=== PATIENT | male | born 1965 | race Hispanic/Latino ===

== ENCOUNTER 2019-11-28 07:43 | Observation (INO) | payer OTHER ==
[2019-11-28] MEDS ORDERED: ASPIRIN 325 MG TAB PO ONE (07:50)
[2019-11-28 08:23] LABS: Basophils % (Auto) 0.5 % (0.0-1.8); Eosinophils # (Auto) 0.1 K/mm3 (0.0-0.4); Eosinophils % (Auto) 2.1 % (0.0-4.3); Hematocrit 49.8 % (35.5-45.6); Lymphocytes # (Auto) 1.1 K/mm3 (1.2-5.4); Lymphocytes % (Auto) 16.2 % (13.4-35.0); Mean Corpuscular HGB Conc 34 % (32-34); Mean Corpuscular Volume 87 fl (84-94); Monocytes # (Auto) 0.3 K/mm3 (0.0-0.8); Monocytes % (Auto) 4.7 % (0.0-7.3); Platelet Count 201 K/mm3 (140-440); Red Blood Count 5.73 M/mm3 (3.65-5.03); Red Cell Distribution Width 14.2 % (13.2-15.2)
--- NOTE | 2019-11-28 08:25 | XRay Report ---
CHEST 2 VIEWS INDICATION: Chest Pain. COMPARISON: None FINDINGS: SUPPORT DEVICES: None. HEART: Within normal limits. LUNGS/PLEURA: Minimal streaky left basilar airspace disease with otherwise clear lungs. No pneumotho rax. ADDITIONAL FINDINGS: None. IMPRESSION: 1. Pulmonary findings as above. Signer Name: Antonio Pandey MD Signed: 11/28/2019 8:21 AM Workstation Name: [id number]
--- NOTE | 2019-11-28 08:35 | Emergency Department Report ---
ED Chest Pain HPI - General Chief Complaint: Chest Pain Stated Complaint: CHEST PAIN Time Seen by Provider: 11/28/19 08:24 Source: patient Mode of arrival: Ambulatory Limitations: No Limitations - History of Present Illness Initial Comments: This is a 54-year-old male with no prior emergency department visit for chest pain. He has a history of diabetes and hypertension. He is a former smoker. His mother had a heart attack and heart valve disease. He states he had a stress test "a long time ago". Today he started to experience sweating at home. He checked his sugar and it was about 100. He decided to continue on a trip from [place] to [facility]. However, in route he developed "tingling in his chest" that lasted for about a minute. He felt short of breath. The discomfort did not radiate. He was somewhat sweaty again. He has not experienced something like this in the past. His symptoms have now resolved. MD Complaint: chest pain -: Gradual, minutes(s) Onset: during rest Pain Location: substernal Pain Radiation: none Severity: moderate Quality: other (As above) Consistency: now resolved re: diaphoresis, dyspnea Other Symptoms: denies: cough, fever, syncope Treatments Prior to Arrival: none Aspirin use within the Past 7 Days: (0) No - Related Data Home Medications Medication Instructions Recorded Confirmed Last Taken Dapagliflozin Propanediol [Farxiga] 10 mg PO QDAY 11/28/19 11/28/19 11/27/19 Pantoprazole [Protonix] 40 mg PO QDAY 11/28/19 11/28/19 11/27/19 Pregabalin [Lyrica] 75 mg PO QDAY 11/28/19 11/28/19 11/27/19 lisinopriL [Zestril] 20 mg PO QDAY 11/28/19 11/28/19 11/27/19 Allergies Allergy/AdvReac Type Severity Reaction Status Date / Time Penicillins Allergy Unknown Verified 11/28/19 07:44 Heart Score - HEART Score History: Moderately suspicious EKG: Normal Age: 45-65 Risk factors: > 3 risk factors or hx of atherosclerotic disease Troponin: < normal limit HEART Score: 4 - Critical Actions Critical Actions: 4-6 pts:12-16.6% risk of adverse cardiac event. Should be admitted ED Review of Systems ROS: Stated complaint: CHEST PAIN Other details as noted in HPI Constitutional: diaphoresis ("[place] clammy"). denies: chills, fever Eyes: denies: eye pain, eye discharge, vision change ENT: denies: ear pain, throat pain Respiratory: shortness of breath. denies: cough, wheezing Cardiovascular: chest pain. denies: palpitations Endocrine: no symptoms reported Gastrointestinal: denies: abdominal pain, nausea, diarrhea Genitourinary: denies: urgency, dysuria Musculoskeletal: denies: back pain, joint swelling, arthralgia Skin: denies: rash, lesions Neurological: denies: headache, weakness, paresthesias Psychiatric: denies: anxiety, depression Hematological/Lymphatic: denies: easy bleeding, easy bruising ED Past Medical Hx - Past Medical History Previous Medical History?: Yes Hx Hypertension: Yes Hx Diabetes: Yes - Surgical History Past Surgical History?: No - Social History Smoking Status: Never Smoker Substance Use Type: None - Medications Home Medications: Home Medications Medication Instructions Recorded Confirmed Last Taken Type Dapagliflozin Propanediol [Farxiga] 10 mg PO QDAY 11/28/19 11/28/19 11/27/19 History Pantoprazole [Protonix] 40 mg PO QDAY 11/28/19 11/28/19 11/27/19 History Pregabalin [Lyrica] 75 mg PO QDAY 11/28/19 11/28/19 11/27/19 History lisinopriL [Zestril] 20 mg PO QDAY 11/28/19 11/28/19 11/27/19 History ED Physical Exam - General Limitations: No Limitations General appearance: alert, in no apparent distress - Head Head exam: Present: atraumatic, normocephalic - Eye Eye exam: Present: normal appearance. Absent: scleral icterus - ENT ENT exam: Present: mucous membranes moist - Neck Neck exam: Present: normal inspection - Respiratory Respiratory exam: Present: normal lung sounds bilaterally. Absent: respiratory distress - Cardiovascular Cardiovascular Exam: Present: regular rate, normal rhythm. Absent: systolic murmur, diastolic murmur, rubs, gallop - GI/Abdominal GI/Abdominal exam: Present: soft, normal bowel sounds. Absent: distended, tenderness, guarding, rebound, rigid - Rectal Rectal exam: Present: deferred - Extremities Exam Extremities exam: Present: normal inspection. Absent: pedal edema, calf tenderness - Back Exam Back exam: Present: normal inspection - Neurological Exam Neurological exam: Present: alert, oriented X3, CN II-XII intact. Absent: motor sensory deficit - Psychiatric Psychiatric exam: Present: normal affect, normal mood - Skin Skin exam: Present: warm, dry, intact, normal color. Absent: rash ED Course Vital Signs 11/28/19 11/28/19 11/28/19 07:45 08:27 08:30 Temperature 97.5 F L Pulse Rate 92 H 80 79 Respiratory 16 14 19 Rate Blood Pressure 142/96 133/88 Blood Pressure [Right] O2 Sat by Pulse 97 97 96 Oximetry 11/28/19 11/28/19 08:31 09:21 Temperature Pulse Rate 72 73 Respiratory 15 15 Rate Blood Pressure Blood Pressure 133/88 120/88 [Right] O2 Sat by Pulse 97 96 Oximetry - Reevaluation(s) Reevaluation #1: Discussed with hospitalist. Admit to Dr. Alvarez. 11/28/19 09:27 IZZY score - Izzy Score Age > 65: (0) No Aspirin use within the Past 7 Days: (0) No 3 or more CAD Risk Factors: (1) Yes 2 or more Angina events in past 24 hrs: (0) No Known CAD with more than 50% Stenosis: (0) No Elevated Cardiac Markers: (0) No ST Deviation Greater than 0.5mm: (0) No IZZY Score: 1 ED Medical Decision Making - Lab Data Result diagrams: 11/28/19 07:52 11/28/19 07:52 Laboratory Results - last 24 hr 11/28/19 11/28/19 11/28/19 07:52 07:52 08:55 WBC 6.9 RBC 5.73 H Hgb 17.0 H Hct 49.8 H MCV 87 MCH 30 MCHC 34 RDW 14.2 Plt Count 201 Lymph % (Auto) 16.2 [place] % (Auto) 4.7 Eos % (Auto) 2.1 Baso % (Auto) 0.5 Lymph # 1.1 L [place] # 0.3 Eos # 0.1 Baso # 0.0 Seg Neutrophils % 76.5 H Seg Neutrophils # 5.3 PT 12.4 INR 0.94 APTT 28.4 Sodium 138 Potassium 4.4 Chloride 99.7 Carbon Dioxide 23 Anion Gap 20 BUN 20 Creatinine 0.8 Estimated GFR > 60 BUN/Creatinine Ratio 25 Glucose 151 H Calcium 9.3 Troponin T < 0.010 - EKG Data -: EKG Interpreted by Me EKG shows normal: sinus rhythm, axis, intervals, QRS complexes, ST-T waves Rate: normal - EKG Data Interpretation: no acute changes - Radiology Data Radiology results: image reviewed (Looks like some chronic lung and a nipple shadow) Critical care attestation.: If time is entered above; I have spent that time in minutes in the direct care of this critically ill patient, excluding procedure time. ED Disposition Clinical Impression: Chest pain Qualifiers: Chest pain type: unspecified Qualified Code(s): R07.9 - Chest pain, unspecified Type 2 diabetes mellitus Qualifiers: Diabetes mellitus senior care insulin use: unspecified senior care insulin use status Diabetes mellitus complication status: without complication Qualified Code(s): E11.9 - Type 2 diabetes mellitus without complications Disposition: 09 OP ADMIT IP TO THIS HOSP Is pt being admited?: Yes Does the pt Need Aspirin: Yes Condition: Stable Instructions: Chest Pain (ED), Diabetes Mellitus Type 2 in Adults (ED) Time of Disposition: 09:27
[2019-11-28 08:44] LABS: BUN/Creatinine Ratio 25; Blood Urea Nitrogen 20 mg/dL (9-20); Calcium 9.3 mg/dL (8.4-10.2); Hemolysis Index 26
[2019-11-28 09:19] LABS: INR 0.94 (0.87-1.13)
[2019-11-28 09:20] LABS: Partial Thromboplastin Time 28.4 Sec. (24.2-36.6)
[2019-11-28 09:27] LABS: Creatine Kinase MB 2.1 ng/mL (0.0-4.0)
[2019-11-28 09:28] LABS: Alanine Aminotransferase 23 units/L (7-56); Albumin 4.2 g/dL (3.9-5)
[2019-11-28 09:40] LABS: Bilirubin,Direct < 0.2 mg/dL (0-0.2)
--- NOTE | 2019-11-28 11:19 | History and Physical Report ---
History of Present Illness Date of examination: 11/28/19 Date of admission: 11/28/19 09:28 Chief complaint: cp History of present illness: 54-year-old male with significant past medical history of diabetes mellitus type 2, hypertension and former smoker who presents to the emergency department with complaints of chest pain. Patient reports that his last cardiac evaluation via stress test was 2014 and reportedly normal. He reports that today he became diaphoretic while driving to visit his mother in [facility]. Patient stated that other symptoms ensued including tingling in his chest and mild shortness of breath. He also reports that his diaphoresis worsened. Therefore, patient came to the nearest hospital which was our facility this morning. He denies any nausea or vomiting. No cough or cold-like symptoms. No fever chills. Past History Past Medical History: diabetes, hypertension Past Surgical History: No surgical history Social history: no significant social history Family history: other (Mother with CAD/VA and heart valve disease) Medications and Allergies Allergies Allergy/AdvReac Type Severity Reaction Status Date / Time Penicillins Allergy Unknown Verified 11/28/19 07:44 Home Medications Medication Instructions Recorded Confirmed Last Taken Type Dapagliflozin Propanediol [Farxiga] 10 mg PO QDAY 11/28/19 11/28/19 11/27/19 History Pantoprazole [Protonix] 40 mg PO QDAY 11/28/19 11/28/19 11/27/19 History Pregabalin [Lyrica] 75 mg PO QDAY 11/28/19 11/28/19 11/27/19 History lisinopriL [Zestril] 20 mg PO QDAY 11/28/19 11/28/19 11/27/19 History Review of Systems All systems: negative Exam - Constitutional Vitals: Temp Pulse Resp BP Pulse Ox 97.5 F L 63 12 116/78 96 11/28/19 07:45 11/28/19 10:00 11/28/19 10:00 11/28/19 10:00 11/28/19 10:00 General appearance: Present: no acute distress, well-nourished - EENT Eyes: Present: PERRL ENT: hearing intact, clear oral mucosa - Neck Neck: Present: supple, normal ROM - Respiratory Respiratory effort: normal Respiratory: bilateral: CTA - Cardiovascular Heart Sounds: Present: S1 & S2. Absent: rub, click - Extremities Extremities: pulses symmetrical, No edema Peripheral Pulses: within normal limits - Abdominal General gastrointestinal: Present: soft, non-tender, non-distended, normal bowel sounds Male genitourinary: Present: normal - Integumentary Integumentary: Present: clear, warm, dry - Musculoskeletal Musculoskeletal: gait normal, strength equal bilaterally - Psychiatric Psychiatric: appropriate mood/affect, intact judgment & insight - Neurologic Neurologic: CNII-XII intact, moves all extremities HEART Score - HEART Score EKG: Normal Age: 45-65 Risk factors: > 3 risk factors or hx of atherosclerotic disease Troponin: Troponin T < 0.010 ng/mL (0.00-0.029) 11/28/19 08:55 Troponin: < normal limit - Critical Actions Critical Actions: 4-6 pts:12-16.6% risk of adverse cardiac event. Should be admitted Results - Labs CBC & Chem 7: 11/28/19 07:52 11/28/19 07:52 Labs: Laboratory Last Values WBC 6.9 K/mm3 (4.5-11.0) 11/28/19 07:52 RBC 5.73 M/mm3 (3.65-5.03) H 11/28/19 07:52 Hgb 17.0 gm/dl (11.8-15.2) H 11/28/19 07:52 Hct 49.8 % (35.5-45.6) H 11/28/19 07:52 MCV 87 fl (84-94) 11/28/19 07:52 MCH 30 pg (28-32) 11/28/19 07:52 MCHC 34 % (32-34) 11/28/19 07:52 RDW 14.2 % (13.2-15.2) 11/28/19 07:52 Plt Count 201 K/mm3 (140-440) 11/28/19 07:52 Lymph % (Auto) 16.2 % (13.4-35.0) 11/28/19 07:52 [place] % (Auto) 4.7 % (0.0-7.3) 11/28/19 07:52 Eos % (Auto) 2.1 % (0.0-4.3) 11/28/19 07:52 Baso % (Auto) 0.5 % (0.0-1.8) 11/28/19 07:52 Lymph # 1.1 K/mm3 (1.2-5.4) L 11/28/19 07:52 [place] # 0.3 K/mm3 (0.0-0.8) 11/28/19 07:52 Eos # 0.1 K/mm3 (0.0-0.4) 11/28/19 07:52 Baso # 0.0 K/mm3 (0.0-0.1) 11/28/19 07:52 Seg Neutrophils % 76.5 % (40.0-70.0) H 11/28/19 07:52 Seg Neutrophils # 5.3 K/mm3 (1.8-7.7) 11/28/19 07:52 PT 12.4 Sec. (12.2-14.9) 11/28/19 08:55 INR 0.94 (0.87-1.13) 11/28/19 08:55 APTT 28.4 Sec. (24.2-36.6) 11/28/19 08:55 Sodium 138 mmol/L (137-145) 11/28/19 07:52 Potassium 4.4 mmol/L (3.6-5.0) 11/28/19 07:52 Chloride 99.7 mmol/L (98-107) 11/28/19 07:52 Carbon Dioxide 23 mmol/L (22-30) 11/28/19 07:52 Anion Gap 20 mmol/L 11/28/19 07:52 BUN 20 mg/dL (9-20) 11/28/19 07:52 Creatinine 0.8 mg/dL (0.8-1.5) 11/28/19 07:52 Estimated GFR > 60 ml/min 11/28/19 07:52 BUN/Creatinine Ratio 25 % 11/28/19 07:52 Glucose 151 mg/dL (75-100) H 11/28/19 07:52 Calcium 9.3 mg/dL (8.4-10.2) 11/28/19 07:52 Total Bilirubin 0.50 mg/dL (0.1-1.2) 11/28/19 08:55 Direct Bilirubin < 0.2 mg/dL (0-0.2) 11/28/19 08:55 Indirect Bilirubin 0.3 mg/dL 11/28/19 08:55 AST 19 units/L (5-40) 11/28/19 08:55 ALT 23 units/L (7-56) 11/28/19 08:55 Alkaline Phosphatase 68 units/L (35-129) 11/28/19 08:55 Total Creatine Kinase 70 units/L (55-170) 11/28/19 08:55 CK-MB (CK-2) 2.1 ng/mL (0.0-4.0) 11/28/19 08:55 CK-MB (CK-2) Rel Index 3.0 (0-4) 11/28/19 08:55 Troponin T < 0.010 ng/mL (0.00-0.029) 11/28/19 08:55 NT-Pro-B Natriuret Pep 96.00 pg/mL (0-900) 11/28/19 08:55 Total Protein 6.9 g/dL (6.3-8.2) 11/28/19 08:55 Albumin 4.2 g/dL (3.9-5) 11/28/19 08:55 Albumin/Globulin Ratio 1.6 % 11/28/19 08:55 [place]/IV: IV Catheter Type [Left INT / Saline Lock Antecubital] Assessment and Plan Assessment and plan: Chest pain. Patient will be placed on the chest pain pathway. Follow-up cardiac isoenzymes and EKG. Cardiology consultation. Check echocardiogram.\ Diabetes mellitus type 2. Continue Accu-Cheks and sliding scale insulin. Hypertension. Resume lisinopril.
[2019-11-28] MEDS ORDERED: DEXTROSE 50% IN WATER (25GM) 50 ML SYRINGE IV PRN (11:24)
[2019-11-28] MEDS ORDERED: ACETAMINOPHEN 325 MG TAB PO PRN (11:24)
[2019-11-28] MEDS ORDERED: ONDANSETRON 4 MG/2 ML INJ IV PRN (11:24)
[2019-11-28] MEDS: INSULIN REGULAR, HUMAN 100 UNITS/1 ML SUB-Q SCH ×3 (12:49→21:08)
[2019-11-28] MEDS: ENOXAPARIN 40 MG/0.4 ML INJ SUB-Q SCH (13:11)
[2019-11-28 14:29] LABS: Basophils % (Auto) 0.7 % (0.0-1.8); Eosinophils # (Auto) 0.1 K/mm3 (0.0-0.4); Eosinophils % (Auto) 1.4 % (0.0-4.3); Hematocrit 48.4 % (35.5-45.6); Hemoglobin 16.3 gm/dl (11.8-15.2); Lymphocytes # (Auto) 1.3 K/mm3 (1.2-5.4); Lymphocytes % (Auto) 17.9 % (13.4-35.0); Mean Corpuscular HGB Conc 34 % (32-34); Mean Corpuscular Volume 88 fl (84-94); Monocytes # (Auto) 0.5 K/mm3 (0.0-0.8); Monocytes % (Auto) 6.9 % (0.0-7.3); Platelet Count 191 K/mm3 (140-440); Red Blood Count 5.51 M/mm3 (3.65-5.03); Red Cell Distribution Width 14.4 % (13.2-15.2)
[2019-11-28 15:00] LABS: BUN/Creatinine Ratio 21; Blood Urea Nitrogen 17 mg/dL (9-20); Calcium 9.1 mg/dL (8.4-10.2); Hemolysis Index 17
--- NOTE | 2019-11-28 16:23 | Consultation ---
History of Present Illness Consult date: 11/28/19 Requesting physician: JOLLY JEFF Consult reason: chest pain History of present illness: Pt is a 54 y.o. male with a past medical hx of HTN, HLD (newly diagnosed), DM2, and h/o tobacco abuse (former smoker). He is new to our practice. Pt reports having an echo and stress test done in [place] in 2014. He states all cardiac testing at that time was normal. Pt presented c/o chest pain that developed while he was driving earlier today. He states he began to feel "clammy" followed by what he describes as pressure in the center of his chest, non-radiating. The episode lasted 1-2 minutes and was associated w/SOB and tingling in his fingers, which also resolved. Pt denies any other cardiac complaints. He has been chest pain-free since admission. Trop neg x 3. No acute ischemic changes on ECG. CXR revealed minimal streaky left basilar airspace disease with otherwise clear lungs. Past History Past Medical History: diabetes, hypertension, hyperlipidemia Past Surgical History: No surgical history Social history: smoking (former smoker) Family history: CAD, other ([place] - mother) Medications and Allergies Allergies Allergy/AdvReac Type Severity Reaction Status Date / Time Penicillins Allergy Unknown Verified 11/28/19 07:44 Home Medications Medication Instructions Recorded Confirmed Last Taken Type Dapagliflozin Propanediol [Farxiga] 10 mg PO QDAY 11/28/19 11/28/19 11/27/19 History Pantoprazole [Protonix] 40 mg PO QDAY 11/28/19 11/28/19 11/27/19 History Pregabalin [Lyrica] 75 mg PO QDAY 11/28/19 11/28/19 11/27/19 History lisinopriL [Zestril] 20 mg PO QDAY 11/28/19 11/28/19 11/27/19 History Active Meds: Active Medications Acetaminophen (Tylenol) 650 mg PO Q4H PRN PRN Reason: Pain MILD(1-3)/Fever >100.5/BARNETT Aspirin (Ecotrin) 325 mg PO QDAY HADLEY Dextrose (D50w (25gm) Syringe) 50 ml IV Q30MIN PRN; Protocol PRN Reason: Hypoglycemia Enoxaparin Sodium (Enoxaparin) 40 mg SUB-Q QDAY HADLEY Last Admin: 11/28/19 13:11 Dose: 40 mg Documented by: Insulin Human Regular (Humulin R) 0 units SUB-Q ACHS [facility]; Protocol Last Admin: 11/28/19 12:49 Dose: Not Given Documented by: Ondansetron HCl (Zofran) 4 mg IV Q8H PRN PRN Reason: Nausea And Vomiting Sodium Chloride (Sodium Chloride Flush Syringe 10 Ml) 10 ml IV BID HADLEY Sodium Chloride (Sodium Chloride Flush Syringe 10 Ml) 10 ml IV PRN PRN PRN Reason: LINE FLUSH Sodium Chloride (Sodium Chloride Flush Syringe 10 Ml) 10 ml IV PRN PRN PRN Reason: LINE FLUSH Review of Systems Constitutional: no weight loss, no weight gain, no fever, no chills, no sweats, no fatigue Ears, nose, mouth and throat: no nasal congestion, no epistaxis, no bleeding gums, no dysphagia, no sore throat Cardiovascular: no chest pain, no orthopnea, no palpitations, no edema, no syncope, no lightheadedness, no shortness of breath, no dyspnea on exertion, no claudication Respiratory: no cough, no shortness of breath, no dyspnea on exertion, no wheezing, no pain on inspiration Gastrointestinal: no abdominal pain, no nausea, no vomiting, no diarrhea, no co nstipation Genitourinary Male: no dysuria, no flank pain Musculoskeletal: no neck stiffness, no neck pain, no muscle weakness, no muscle cramps Integumentary: no rash, no wounds Neurological: no head injury, no paralysis, no parathesias, no numbness, no tingling, no seizures, no syncope, no vertigo, no headaches Endocrine: no cold intolerance, no heat intolerance, no polydipsia, no polyuria Hematologic/Lymphatic: no easy bruising, no easy bleeding Allergic/Immunologic: no urticaria, no angioedema Physical Examination Last Vital Signs Temp 97.5 F L 11/28/19 07:45 Pulse 63 11/28/19 10:00 Resp 18 11/28/19 11:41 BP 116/78 11/28/19 10:00 Pulse Ox 98 11/28/19 11:41 General appearance: no acute distress HEENT: Positive: PERRL, Normocephaly, Mucus Membranes Moist Neck: Positive: neck supple, trachea midline. Negative: JVD/HJR Cardiac: Positive: Reg Rate and Rhythm, S1/S2 Lungs: Positive: clear to auscultation (bilaterally) Neuro: Positive: Grossly Intact Abdomen: Positive: Soft, Active Bowel Sounds. Negative: Tender Skin: Negative: Rash, Wound Musculoskeletal: No Pain, Normal Range of Motion Extremities: Present: upper extr. pulses, lower extr. pulses. Absent: edema Results 11/28/19 14:05 11/28/19 14:05 Cardiac Enzymes 11/28/19 11/28/19 Range/Units 08:55 08:55 AST 19 (5-40) units/L CK-MB (CK-2) 2.1 (0.0-4.0) ng/mL Coagulation 11/28/19 Range/Units 08:55 PT 12.4 (12.2-14.9) Sec. INR 0.94 (0.87-1.13) APTT 28.4 (24.2-36.6) Sec. CBC 11/28/19 11/28/19 Range/Units 07:52 14:05 WBC 6.9 7.4 (4.5-11.0) K/mm3 RBC 5.73 H 5.51 H (3.65-5.03) M/mm3 Hgb 17.0 H 16.3 H (11.8-15.2) gm/dl Hct 49.8 H 48.4 H (35.5-45.6) % Plt Count 201 191 (140-440) K/mm3 Lymph # 1.1 L 1.3 (1.2-5.4) K/mm3 [place] # 0.3 0.5 (0.0-0.8) K/mm3 Eos # 0.1 0.1 (0.0-0.4) K/mm3 Baso # 0.0 0.0 (0.0-0.1) K/mm3 Comprehensive Metabolic Panel 11/28/19 11/28/19 11/28/19 Range/Units 07:52 08:55 14:05 Sodium 138 138 (137-145) mmol/L Potassium 4.4 4.3 (3.6-5.0) mmol/L Chloride 99.7 100.8 (98-107) mmol/L Carbon Dioxide 23 24 (22-30) mmol/L BUN 20 17 (9-20) mg/dL Creatinine 0.8 0.8 (0.8-1.5) mg/dL Glucose 151 H 99 (75-100) mg/dL Calcium 9.3 9.1 (8.4-10.2) mg/dL Direct Bilirubin < 0.2 (0-0.2) mg/dL Indirect Bilirubin 0.3 mg/dL AST 19 (5-40) units/L ALT 23 (7-56) units/L Alkaline Phosphatase 68 (35-129) units/L Total Protein 6.9 (6.3-8.2) g/dL Albumin 4.2 (3.9-5) g/dL - Imaging and Cardiology Echo: pending EKG: report reviewed, image reviewed - EKG Interpretation EKG: no acute changes EKG interpretations - Telemetry EKG Rhythm: Sinus Rhythm - EKG Sinus rhythms and dysrhythmias: sinus rhythm Assessment and Plan ACS r/o. Obtain echo. Plan for Lexiscan MPI stress test on Saturday. Cont supportive care. Resume home Lisinopril. Pt was started on statin by PCP within the last few days. 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 Instructed pt to initiate statin therapy upon discharge. Pt seen in conjunction with Dr. Stack, who agrees with the assessment and plan of care. - Patient Problems (1) Chest pain Current Visit: Yes Status: Acute Qualifiers: Qualified Code(s): R07.9 - Chest pain, unspecified (2) Hypertension Current Visit: Yes Status: Chronic Qualifiers: Hypertension type: essential hypertension Qualified Code(s): I10 - Essential (primary) hypertension (3) Hyperlipidemia Current Visit: Yes Status: Chronic Qualifiers: Hyperlipidemia type: mixed hyperlipidemia Qualified Code(s): E78.2 - Mixed hyperlipidemia (4) Type 2 diabetes mellitus Current Visit: Yes Status: Chronic Qualifiers: Diabetes mellitus chcf insulin use: unspecified chcf insulin use status Diabetes mellitus complication status: without complication Qualified Code(s): E11.9 - Type 2 diabetes mellitus without complications
[2019-11-28] MEDS: LISINOPRIL 20 MG TAB PO SCH (21:41)
[2019-11-28] MEDS ORDERED: PANTOPRAZOLE 40 MG TAB PO SCH (23:00)
[2019-11-28] MEDS ORDERED: PREGABALIN 75 MG CAP PO SCH ×2 (23:45→23:59)
[2019-11-28] MEDS ORDERED: PANTOPRAZOLE 40 MG TAB PO ONE (23:54)
[2019-11-29 05:13] VITALS: BP 111/77
[2019-11-29 05:59] LABS: Basophils # (Auto) 0.1 K/mm3 (0.0-0.1); Basophils % (Auto) 0.8 % (0.0-1.8); Eosinophils # (Auto) 0.1 K/mm3 (0.0-0.4); Eosinophils % (Auto) 1.9 % (0.0-4.3); Hematocrit 48.1 % (35.5-45.6); Hemoglobin 16.3 gm/dl (11.8-15.2); Lymphocytes # (Auto) 1.3 K/mm3 (1.2-5.4); Lymphocytes % (Auto) 19.5 % (13.4-35.0); Mean Corpuscular HGB Conc 34 % (32-34); Mean Corpuscular Volume 88 fl (84-94); Monocytes # (Auto) 0.4 K/mm3 (0.0-0.8); Monocytes % (Auto) 6.4 % (0.0-7.3); Platelet Count 187 K/mm3 (140-440); Red Blood Count 5.49 M/mm3 (3.65-5.03); Red Cell Distribution Width 14.4 % (13.2-15.2)
[2019-11-29 06:03] LABS: BUN/Creatinine Ratio 23; Blood Urea Nitrogen 16 mg/dL (9-20); Hemolysis Index 10
[2019-11-29] MEDS: INSULIN REGULAR, HUMAN 100 UNITS/1 ML SUB-Q SCH ×2 (07:40→13:38)
[2019-11-29] MEDS ORDERED: ASPIRIN EC 325 MG TAB PO SCH (10:00)
[2019-11-29] MEDS ORDERED: PANTOPRAZOLE 40 MG TAB PO SCH ×2 (10:00→22:00)
[2019-11-29] MEDS ORDERED: PREGABALIN 75 MG CAP PO SCH (10:00)
[2019-11-29] MEDS ORDERED: LISINOPRIL 20 MG TAB PO SCH ×2 (10:00)
[2019-11-29] MEDS ORDERED: DAPAGLIFLOZIN PROPANEDIOL 10 MG PO SCH (10:00)
--- NOTE | 2019-11-29 10:29 | Progress Note ---
Assessment and Plan Assessment and plan: Chest pain. Patient will be placed on the chest pain pathway. Follow-up cardiac isoenzymes and EKG. Cardiology consultation. Check echocardiogram.\ Diabetes mellitus type 2. Continue Accu-Cheks and sliding scale insulin. Hypertension. Resume lisinopril. 11/29/2019. Patient is currently pain-free. Echocardiogram is pending. Cardiology is scheduled for stress test in a.m. History Interval history: Pt is a 54 y.o. male with a past medical hx of HTN, HLD (newly diagnosed), DM2, and h/o tobacco abuse (former smoker) who presented with c/o chest pain that developed while he was driving on 11/27/2019. Patient was admitted to the hospital with diagnosis of chest pain. Pt reports having an echo and stress test done in [place] in 2014. He states all cardiac testing at that time was normal. Trop neg x 3. No acute ischemic changes on ECG. CXR revealed minimal streaky left basilar airspace disease with otherwise clear lungs. Cardiology saw the patient in consultation and recommended echocardiogram and stress test. Hospitalist Physical - Constitutional Vitals: Temp Pulse Resp BP Pulse Ox 98.0 F 69 20 111/77 95 11/29/19 04:20 11/29/19 04:20 11/29/19 04:20 11/29/19 04:20 11/29/19 04:20 General appearance: Present: no acute distress - EENT Eyes: Present: PERRL, EOM intact ENT: hearing intact, clear oral mucosa, dentition normal - Neck Neck: Present: supple, normal ROM - Respiratory Respiratory effort: normal Respiratory: bilateral: CTA - Cardiovascular Rhythm: regular Heart Sounds: Present: S1 & S2. Absent: gallop, rub - Extremities Extremities: no ischemia, No edema, Full ROM - Abdominal General gastrointestinal: soft, non-tender, non-distended, normal bowel sounds - Integumentary Integumentary: Present: clear, warm, dry - Neurologic Neurologic: CNII-XII intact, moves all extremities HEART Score - HEART Score EKG: Normal Age: 45-65 Risk factors: > 3 risk factors or hx of atherosclerotic disease Troponin: Troponin T < 0.010 ng/mL (0.00-0.029) 11/28/19 14:05 Troponin: < normal limit - Critical Actions Critical Actions: 4-6 pts:12-16.6% risk of adverse cardiac event. Should be admitted Results - Labs CBC & Chem 7: 11/29/19 05:11 11/29/19 05:11 Labs: Laboratory Last Values WBC 6.9 K/mm3 (4.5-11.0) 11/29/19 05:11 RBC 5.49 M/mm3 (3.65-5.03) H 11/29/19 05:11 Hgb 16.3 gm/dl (11.8-15.2) H 11/29/19 05:11 Hct 48.1 % (35.5-45.6) H 11/29/19 05:11 MCV 88 fl (84-94) 11/29/19 05:11 MCH 30 pg (28-32) 11/29/19 05:11 MCHC 34 % (32-34) 11/29/19 05:11 RDW 14.4 % (13.2-15.2) 11/29/19 05:11 Plt Count 187 K/mm3 (140-440) 11/29/19 05:11 Lymph % (Auto) 19.5 % (13.4-35.0) 11/29/19 05:11 Gray % (Auto) 6.4 % (0.0-7.3) 11/29/19 05:11 Eos % (Auto) 1.9 % (0.0-4.3) 11/29/19 05:11 Baso % (Auto) 0.8 % (0.0-1.8) 11/29/19 05:11 Lymph # 1.3 K/mm3 (1.2-5.4) 11/29/19 05:11 Gray # 0.4 K/mm3 (0.0-0.8) 11/29/19 05:11 Eos # 0.1 K/mm3 (0.0-0.4) 11/29/19 05:11 Baso # 0.1 K/mm3 (0.0-0.1) 11/29/19 05:11 Seg Neutrophils % 71.4 % (40.0-70.0) H 11/29/19 05:11 Seg Neutrophils # 4.9 K/mm3 (1.8-7.7) 11/29/19 05:11 PT 12.4 Sec. (12.2-14.9) 11/28/19 08:55 INR 0.94 (0.87-1.13) 11/28/19 08:55 APTT 28.4 Sec. (24.2-36.6) 11/28/19 08:55 Sodium 138 mmol/L (137-145) 11/29/19 05:11 Potassium 4.0 mmol/L (3.6-5.0) 11/29/19 05:11 Chloride 100.9 mmol/L (98-107) 11/29/19 05:11 Carbon Dioxide 25 mmol/L (22-30) 11/29/19 05:11 Anion Gap 16 mmol/L 11/29/19 05:11 BUN 16 mg/dL (9-20) 11/29/19 05:11 Creatinine 0.7 mg/dL (0.8-1.5) L 11/29/19 05:11 Estimated GFR > 60 ml/min 11/29/19 05:11 BUN/Creatinine Ratio 23 % 11/29/19 05:11 Glucose 102 mg/dL (75-100) H 11/29/19 05:11 POC Glucose 77 (70-105) 11/28/19 20:59 Calcium 9.0 mg/dL (8.4-10.2) 11/29/19 05:11 Total Bilirubin 0.50 mg/dL (0.1-1.2) 11/28/19 08:55 Direct Bilirubin < 0.2 mg/dL (0-0.2) 11/28/19 08:55 Indirect Bilirubin 0.3 mg/dL 11/28/19 08:55 AST 19 units/L (5-40) 11/28/19 08:55 ALT 23 units/L (7-56) 11/28/19 08:55 Alkaline Phosphatase 68 units/L (35-129) 11/28/19 08:55 Total Creatine Kinase 70 units/L (55-170) 11/28/19 08:55 CK-MB (CK-2) 2.1 ng/mL (0.0-4.0) 11/28/19 08:55 CK-MB (CK-2) Rel Index 3.0 (0-4) 11/28/19 08:55 Troponin T < 0.010 ng/mL (0.00-0.029) 11/28/19 14:05 NT-Pro-B Natriuret Pep 96.00 pg/mL (0-900) 11/28/19 08:55 Total Protein 6.9 g/dL (6.3-8.2) 11/28/19 08:55 Albumin 4.2 g/dL (3.9-5) 11/28/19 08:55 Albumin/Globulin Ratio 1.6 % 11/28/19 08:55 Dawson/IV: Voiding Method Toilet IV Catheter Type [Left INT / Saline Lock Antecubital] Active Medications - Current Medications Current Medications: Generic Name Dose Route Start Last Admin Trade Name Freq PRN Reason Stop Dose Admin Acetaminophen 650 mg 11/28/19 11:24 Tylenol PO Q4H PRN Pain MILD(1-3)/Fever >100.5/BARNETT Aspirin 325 mg 11/29/19 10:00 Ecotrin PO QDAY [facility] Dextrose 50 ml 11/28/19 11:24 D50w (25gm) Syringe IV Q30MIN PRN Hypoglycemia Protocol Enoxaparin Sodium 40 mg 11/28/19 14:00 11/28/19 13:11 Enoxaparin SUB-Q 40 mg QDAY [facility] Administration Insulin Human Regular 0 units 11/28/19 11:30 11/29/19 07:40 Humulin R SUB-Q Not Given [facility] Protocol Lisinopril 20 mg 11/28/19 20:00 11/28/19 21:41 Zestril PO 20 mg QDAY [facility] Administration Miscellaneous Medication 10 mg 11/29/19 10:00 Dapagliflozin Propanediol [Farxiga] PO QDAY [facility] Ondansetron HCl 4 mg 11/28/19 11:24 Zofran IV Q8H PRN Nausea And Vomiting Pantoprazole Sodium 40 mg 11/29/19 22:00 Protonix PO QHS [facility] Pregabalin 75 mg 11/28/19 23:59 11/29/19 04:46 Pregabalin PO Not Given [facility]HS [facility] Sodium Chloride 10 ml 11/28/19 22:00 11/28/19 21:42 Sodium Chloride Flush Syringe 10 Ml IV 10 ml BID [facility] Administration Sodium Chloride 10 ml 11/28/19 11:24 Sodium Chloride Flush Syringe 10 Ml IV PRN PRN LINE FLUSH Sodium Chloride 10 ml 11/28/19 11:24 Sodium Chloride Flush Syringe 10 Ml IV PRN PRN LINE FLUSH
--- NOTE | 2019-11-29 10:54 | Progress Note ---
Assessment and Plan 54-year-old male with hypertension diabetes cholesterol has a heart score of 2 with atypical chest pain negative cardiac enzymes with normal ECG and echocardiogram normally function without significant rotation. We will add low- dose nitrates. 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 Patient may be discharged from a cardiovascular point of view advised patient if symptoms worsen to come back to emergency room refrain from physical activity - Patient Problems (1) Chest pain Current Visit: Yes Status: Acute Qualifiers: Qualified Code(s): R07.9 - Chest pain, unspecified (2) Hyperlipidemia Current Visit: Yes Status: Chronic Qualifiers: Hyperlipidemia type: mixed hyperlipidemia Qualified Code(s): E78.2 - Mixed hyperlipidemia (3) Hypertension Current Visit: Yes Status: Chronic Qualifiers: Hypertension type: essential hypertension Qualified Code(s): I10 - Essential (primary) hypertension (4) Type 2 diabetes mellitus Current Visit: Yes Status: Chronic Qualifiers: Diabetes mellitus 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 Diabetes mellitus complication status: without complication Qualified Code(s): E11.9 - Type 2 diabetes mellitus without complications Subjective Date of service: 11/29/19 Principal diagnosis: cp Interval history: Patient is chest pain-free states only last for a minute not with exertion no nausea no vomiting Objective Vital Signs Temp Pulse Resp BP Pulse Ox 11/29/19 04:20 98.0 F 69 20 111/77 95 11/28/19 23:45 98.0 F 78 18 120/78 95 11/28/19 21:41 77 140/89 11/28/19 20:00 66 11/28/19 19:31 97.6 F 77 18 140/89 93 11/28/19 16:45 97.4 F L 70 18 113/65 88 11/28/19 15:27 71 11/28/19 11:41 18 98 11/28/19 11:23 73 96/70 85 - Physical Examination General: No Apparent Distress HEENT: Positive: PERRL, Normocephaly, Mucus Membranes Moist Neck: Positive: neck supple, trachea midline. Negative: JVD/HJR Cardiac: Positive: Reg Rate and Rhythm Lungs: Positive: clear to auscultation Neuro: Positive: Grossly Intact Abdomen: Positive: Soft, Active Bowel Sounds. Negative: Tender Skin: Negative: Rash, Wound Musculoskeletal: No Pain, Normal Range of Motion Extremities: Present: upper extr. pulses, lower extr. pulses. Absent: edema - Labs and Meds CBC 11/28/19 11/29/19 Range/Units 14:05 05:11 WBC 7.4 6.9 (4.5-11.0) K/mm3 RBC 5.51 H 5.49 H (3.65-5.03) M/mm3 Hgb 16.3 H 16.3 H (11.8-15.2) gm/dl Hct 48.4 H 48.1 H (35.5-45.6) % Plt Count 191 187 (140-440) K/mm3 Lymph # 1.3 1.3 (1.2-5.4) K/mm3 [place] # 0.5 0.4 (0.0-0.8) K/mm3 Eos # 0.1 0.1 (0.0-0.4) K/mm3 Baso # 0.0 0.1 (0.0-0.1) K/mm3 Comprehensive Metabolic Panel 11/28/19 11/29/19 Range/Units 14:05 05:11 Sodium 138 138 (137-145) mmol/L Potassium 4.3 4.0 (3.6-5.0) mmol/L Chloride 100.8 100.9 (98-107) mmol/L Carbon Dioxide 24 25 (22-30) mmol/L BUN 17 16 (9-20) mg/dL Creatinine 0.8 0.7 L (0.8-1.5) mg/dL Glucose 99 102 H (75-100) mg/dL Calcium 9.1 9.0 (8.4-10.2) mg/dL - Imaging and Cardiology EKG: report reviewed, image reviewed Echo: pending, report reviewed (Normal LV function no significant regurgitation) - Telemetry EKG Rhythm: Sinus Rhythm (Sinus rhythm no ST-T abnormalities) - EKG Sinus rhythms and dysrhythmias: sinus rhythm
[2019-11-29] MEDS: ENOXAPARIN 40 MG/0.4 ML INJ SUB-Q SCH ×2 (11:00→11:01)
[2019-11-29] MEDS: LISINOPRIL 20 MG TAB PO SCH ×2 (11:00→11:02)
--- NOTE | 2019-11-29 11:26 | Discharge Summary ---
Providers - Providers Date of Admission: 11/28/19 09:28 Date of discharge: 11/29/19 Attending physician: JOLLY JEFF 11/28/19 Consult to Cardiac Rehabilitation [CONS] Routine Reason For Exam: Phase I 11/28/19 11:24 Consult to Cardiology [CONS] Routine Consulting Provider: RIDGE HUGO Reason For Exam: cp Consult to Physician [CONS] Routine Comment: Consulting Provider: RIDGE HUGO Physician Instructions: Reason For Exam: cp Primary care physician: JUNIOR ACCOUNTANT Hospitalization Reason for admission: cp Condition: Stable Hospital course: Pt is a 54 y.o. male with a past medical hx of HTN, HLD (newly diagnosed), DM2, and h/o tobacco abuse (former smoker) who presented with c/o chest pain that developed while he was driving on 11/27/2019. Patient was admitted to the hospital with diagnosis of chest pain. Pt reports having an echo and stress test done in [place] in 2014. He states all cardiac testing at that time was normal. Trop neg x 3. No acute ischemic changes on ECG. CXR revealed minimal streaky left basilar airspace disease with otherwise clear lungs. Cardiology saw the patient in consultation and recommended echocardiogram and stress test. ECHO revealed normal LV function. Cartdiology recommends f/u with cardiology in [place] and OP stress test. 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 insulin use status Diabetes mellitus complication status: without complication Qualified Code(s): E11.9 - Type 2 diabetes mellitus without complications Core Measure Documentation - Palliative Care Palliative Care/ Comfort Measures: Not Applicable - Core Measures Any of the following diagnoses?: none Exam - Constitutional Vitals: Temp Pulse Resp BP Pulse Ox 98.0 F 69 20 111/77 95 11/29/19 04:20 11/29/19 04:20 11/29/19 04:20 11/29/19 04:20 11/29/19 04:20 General appearance: Present: no acute distress, well-nourished - EENT Eyes: Present: PERRL ENT: hearing intact, clear oral mucosa - Neck Neck: Present: supple, normal ROM - Respiratory Respiratory effort: normal Respiratory: bilateral: CTA - Cardiovascular Heart Sounds: Present: S1 & S2. Absent: rub, click - Extremities Extremities: pulses symmetrical, No edema Peripheral Pulses: within normal limits - Abdominal General gastrointestinal: Present: soft, non-tender, non-distended, normal bowel sounds Male genitourinary: Present: normal - Integumentary Integumentary: Present: clear, warm, dry - Musculoskeletal Musculoskeletal: gait normal, strength equal bilaterally - Psychiatric Psychiatric: appropriate mood/affect, intact judgment & insight - Neurologic Neurologic: CNII-XII intact, moves all extremities Plan Activity: advance as tolerated Weight Bearing Status: Weight Bear as Tolerated Follow up with: PRIMARY CARE, [Primary Care Provider] - 7 Days Prescriptions: ISOSORBIDE MONOnitrate [Imdur ER] 30 mg PO QDAY #30 tablet
== END 2019-11-29 16:56 | disposition home or self-care (01) ==
LOC: ED 07:43 → 4A 09:28
PROVIDERS: ADMIT Hospitalist; ATTEND Hospitalist
DX: R07.89 Other chest pain (principal); I10 Essential (primary) hypertension; E11.9 Type 2 diabetes mellitus without complications; E78.2 Mixed hyperlipidemia; Z87.891 Personal history of nicotine dependence; Z79.899 Other long term (current) drug therapy; Z88.0 Allergy status to penicillin
CPT/HCPCS: 36415; 71046; 80048; 80076; 82550; 82553; 82962; 83880; 84484; 85025; 85610; 85730; 93005; 93306; 96372; 99285; G0378; J1650